=== PATIENT | male | born 1980 | race Caucasian/White ===

== ENCOUNTER 2019-06-25 14:01 | Emergency (ER) | payer OTHER ==
[2019-06-25 14:20] VITALS: PULSE 84; TEMP 98; BMI 29.7
--- NOTE | 2019-06-25 14:22 | PDOC ---
Rapid Medical Evaluation Time Seen by Provider: 06/25/19 14:18 Medical Evaluation: 06/25/19 14:19 I performed a brief in-person evaluation of this patient. 38-year-old male with hx back surgery, "partial dislocation" of right shoulder, current smoker. Presents after slip and fall with right shoulder injury. Pertinent physical exam findings: Able to elevate right arm, able to touch contralateral shoulder anteriorly. ROM limited secondary to pain. Normal strength in right hand, reports numbness. Radial, ulnar, brachial pulses 2+. I have ordered the following: Right shoulder xray with y view Patient will proceed to: [facility] for further evaluation Discharge Disposition - Diagnosis Shoulder injury - Referrals - Patient Instructions - Post Discharge Activity
--- NOTE | 2019-06-25 15:06 | PDOC ---
History of Present Illness - General Chief Complaint: Injury Stated Complaint: RT SHOULDER FALL Time Seen by Provider: 06/25/19 14:18 - History of Present Illness Initial Comments: 06/25/19 15:04 38-year-old male without comorbidities presents for evaluation of right shoulder pain. 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 Past History - Past Medical History Allergies/Adverse Reactions: Allergies Allergy/AdvReac Type Severity Reaction Status Date / Time No Known Allergies Allergy Verified 06/25/19 14:20 COPD: No - Psycho Social/Smoking Cessation Hx Smoking History: Current every day smoker Number of Cigarettes Smoked Daily: 10 Information on smoking cessation initiated: No Review of Systems - Review of Systems Musculoskeletal: Yes: Joint Pain *Physical Exam - Vital Signs Last Vital Signs Temp Pulse Resp BP Pulse Ox 98 F 84 18 149/91 99 06/25/19 14:14 06/25/19 14:14 06/25/19 14:14 06/25/19 14:14 06/25/19 14:14 - Physical Exam 06/25/19 15:05 Decreased range of motion the right shoulder without tenderness. 3 out of 5 supraspinatus isolation unable to tolerate stability or impingement maneuvers. 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 Right shoulder strain follow-up with orthopedics Discharge - Discharge Information Problems reviewed: Yes Clinical Impression/Diagnosis: Shoulder injury Condition: Stable Disposition: HOME - Admission No - Follow up/Referral Referrals: Manny Puentes DO [Staff Physician] - - Patient Discharge Instructions Additional Instructions: Tylenol and Motrin as directed for pain. Return to the emergency room for worsening symptoms. Without fail follow-up with orthopedic surgery in 2 to 3 days for further evaluation and treatment options. - Post Discharge Activity Work/Back to School Note: Back to Work
[2019-06-25 23:25] VITALS: BP 145/91
== END 2019-06-25 15:19 | disposition home or self-care (01) ==
LOC: JERFT 14:01
CPT/HCPCS: 73030-TC-RT-FY; 99281-25